=== PATIENT | male | born 1980 | race Caucasian/White ===

== ENCOUNTER 2016-09-16 20:28 | Emergency (ER) | payer MEDICAID ==
[2016-09-16] MEDS ORDERED: TETRACAINE HCL 150 DROP BTL ONE (20:44)
[2016-09-16] MEDS ORDERED: GENTAMICIN SULFATE 3.5 APPL TUBE EACHEYE ONE (21:09)
[2016-09-16] MEDS ORDERED: IBUPROFEN 600 MG TABLET PO ONE (21:10)
[2016-09-16] MEDS ORDERED: HYDROcodone/ACETAMINOPHEN 1 EACH TABLET PO ONE (21:10)
[2016-09-16] MEDS ORDERED: HYDROcodone/ACETAMINOPHEN 1 EACH TABLET ONE ×2 (21:15→21:45)
[2016-09-16] MEDS ORDERED: IBUPROFEN 600 MG TABLET ONE (21:15)
[2016-09-16] MEDS ORDERED: GENTAMICIN SULFATE 3.5 APPL TUBE ONE (21:16)
--- NOTE | 2016-09-16 21:19 | ERNOTE ---
ENT HPI Date of Service: 09/16/16 Presenting Symptoms: eye pain Time Seen by Provider: 09/16/16 20:43 Source: patient, RN notes reviewed Exam Limitations: no limitations - Immun/Allergies/Home Medications Immunizations: IMMUNIZATION HX Immunizations Up to Date No History of Influenza Vaccine Yes Hx Pneumococcal Vaccination No Allergies/Adverse Reactions: Allergies Allergy/AdvReac Type Severity Reaction Status Date / Time No Known Allergies Allergy Verified 05/11/16 09:40 Home Medications: HOME MEDICATIONS Ibuprofen [Motrin] 800 mg PO TID PRN #60 tab 05/11/16 [Last Taken Unknown] Sulfamethoxazole/Trimethoprim [Bactrim Ds] 1 tab PO BID #20 tab 05/11/16 [Last Taken Unknown] ALPRAZolam [Xanax] 1 mg PO DAILY 09/16/16 [Last Taken Unknown] Albuterol Sulfate [Proventil Hfa] 6.7 gm IH QID PRN 09/16/16 [Last Taken Unknown ] HYDROcodone/ACETAMINOPHEN [[place] 5-325] 1 - 2 tab PO Q6H PRN #12 tab 09/16/16 [ Last Taken Unknown] Ibuprofen [Motrin] 600 mg PO Q6H PRN #40 tab 09/16/16 [Last Taken Unknown] - History of Present Illness Narrative: 36 y/o male ambulatory to the ED for bilateral eye pain that began 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 He believes that there are several pieces of debris in both eyes because pieces of dirt and rust fell out of his helmet when he lifted the mask. He was also exposed to the arc from the oxyacetylene welder at that time. ENT Location: Present: eye (R), eye (L) Prearrival Treatment: Present: no prearrival treatment Prior Treament: Reports: similar symptoms before Review of Systems - Review of Systems Constitutional: Absent: recent illness, fever EYE: Present: eye pain, blurred vision, tearing. Absent: eye discharge ENT: Absent: ear pain, nose congestion, sore throat Respiratory: Present: no symptoms reported Cardiology: Present: no symptoms reported Gastrointestinal/Abdominal: Present: no symptoms reported Genitourinary: Present: no symptoms reported Musculoskeletal: Present: no symptoms reported Skin: Present: change in color. Absent: rash, lesions Neurological: Present: no symptoms reported Endocrine: Present: no symptoms reported Hematologic/Lymphatic: Present: no symptoms reported Psych: Present: no symptoms reported - Patient's Past Medical History Patient History - Medical: Anxiety Patient History - Cardiac/Respiratory: Asthma, Bronchitis Patient History - Cancer: No Hx of Cancer Patient History - Surgical Procedures: Other Patient History - Other: None - Family History Father Family History - Medical: No pertinent hx - Social History Living Situations: home Abuse History: No History of abuse Psych History: Hx of Anxiety Smoking Status: Current every day smoker Patient requests Smoking Cessation Consult: No Initiate information on Smoking Cessation: No Alcohol Use: none Drug Use: marijuana, meth - Immunizations Immunizations Up to Date: No Hx Pneumococcal Vaccination: No History of Influenza Vaccine: Yes Physical Exam - Physical Exam General Appearance: Present: wd/wn, alert, mild distress Eye Exam: PERRL: bilateral, EOMI: bilateral, Sclera injection: bilateral - mild , Eyelid inflammation: bilateral, Conjunctivae pale: bilateral Ears, Nose, Throat: Present: hearing grossly normal Respiratory: Present: no respiratory distress, no accessory muscle use Neurological Exam: Present: alert, oriented, normal mood/affect Skin Exam: Present: warm/dry, other - erythema to face ED Progress - Vital Signs Patient's Vital Signs:: I have reviewed the patient's vital signs. Vital Signs: Vital Signs 09/16/16 20:30 Temperature 36.3 C L Pulse Rate 95 Respiratory 16 Rate Blood Pressure 128/84 O2 Sat by Pulse 99 Oximetry - Progress/Reassessment Chief Complaint: Eye Injury/Trauma Progress:: Improved Procedures Eye Location: both eyes Tetracaine Drops Administered: Yes Eye - Cornea: Right: nml inspection, Left: fluorescein dye uptake, abrasion, Bilateral: examined w/fluorescein Eye FB Removal: other - no foreign body noted in either eye Antibiotic Ointment/Drps Admin: both eyes Complications: Pt chela procedure well Departure Clinical Impression: Ultraviolet keratitis of both eyes Corneal abrasion, right Qualifiers: Encounter type: initial encounter Qualified Code(s): S05.01XA - Injury of conjunctiva and corneal abrasion without foreign body, right eye, initial encounter - Departure Disposition: Home Follow Up Needed Condition: Good Instructions: Corneal Abrasion, [id number] Additional Instructions: Use eye ointment 3 times a day in each eye for 5 days Contact your eye doctor tomorrow for follow up Referrals: Yeny Aguiar, DIRECT SUPPORT SPECIALIST [Primary Care Provider] - Prescriptions: HYDROcodone/ACETAMINOPHEN [[place] 5-325] 1 - 2 tab PO Q6H PRN #12 tab PRN Reason: Pain Ibuprofen [Motrin] 600 mg PO Q6H PRN #40 tab PRN Reason: Pain
--- OUTSIDE RECORDS SUMMARY | 2016-09-16 21:22 | XMS REPORT | Continuity of Care Document ---
:1980 Author Organization [employer] [place] [address] Care Team Providers Name Role Phone Ophelia Reilly Primary Care Provider [phone] Source Comments This disclosure is being made pursuant to the [employer] program and maynot contain all information available regarding this patient.[employer] Active Allergies and Adverse Reactions No Known Allergies Current Medications Be aware that medications may not be up to date as of this document. Alwaysverify current medications with the patient. Prescription Sig. Disp. Refills Start Date End Date Status chlorhexidine (PERIDEX) Use as directed 15 120 mL 0 05/01/2014 Active 0.12 % solution mLs in the mouth or throat every 12 (twelve) hours. hydrocodone-acetaminophe Take 10 mLs by 240 mL 0 05/01/2014 Active n (HYCET) 7.5-325 mouth every 4 MG/15ML solution (four) hours as needed. Active Problems Problem Noted Date Mandible open fracture (HCC) 04/30/2014 Closed fracture of zygomatic arch (HCC) 04/30/2014 Social History Tobacco Use Types Packs/Day Years Used Date Current Every Day Smoker 0.75 Alcohol Use Drinks/Week oz/Week Comments Yes 12 Cans of beer 7.2 Last Filed Vital Signs Vital Sign Reading Time Taken Blood Pressure 150/80 05/01/2014 7:34 AM CDT Pulse 101 05/01/2014 7:34 AM CDT Temperature 36.4 C (97.6 F) 05/01/2014 7:34 AM CDT Respiratory Rate 18 05/01/2014 7:34 AM CDT Height 1.803 m (5' 11") 04/30/2014 5:47 AM CDT Weight 81.647 kg (180 lb) 04/30/2014 5:47 AM CDT Body Mass Index 25.12 04/30/2014 5:47 AM CDT Oxygen Saturation 97% 05/01/2014 7:34 AM CDT Plan of Care Health Maintenance Due Date Last Done Comments Tetanus/Pertussis (1 - Tdap) 1999 Retired-INFLUENZA VACCINE 03/22/2016 Results from Last 3 Months Not on file
[2016-09-16 21:41] VITALS: BP 128/78
== END 2016-09-16 21:45 | disposition home or self-care (01) ==
LOC: ER 20:28
DX: H16.8 Other keratitis (principal); S05.01XA Injury of conjunctiva and corneal abrasion without foreign body, right eye, initial encounter; F17.210 Nicotine dependence, cigarettes, uncomplicated; F41.9 Anxiety disorder, unspecified

== ENCOUNTER 2016-11-06 20:43 | Emergency (ER) | payer MEDICAID ==
[2016-11-06 21:14] VITALS: BP 163/102
--- OUTSIDE RECORDS SUMMARY | 2016-11-06 21:21 | XMS REPORT | Continuity of Care Document ---
:1980 Author Organization [employer] [place] [address] Care Team Providers Name Role Phone Ophelia Reilly Primary Care Provider [phone] Source Comments This disclosure is being made pursuant to the [employer] program and maynot contain all information available regarding this patient.[employer] Active Allergies and Adverse Reactions No Known Allergies Current Medications Be aware that medications may not be up to date as of this document. Alwaysverify current medications with the patient. Prescription Sig. Disp. Refills Start Date End Date Status docusate sodium Take 1 capsule 14 capsule 0 10/24/2016 Active (COLACE) 100 MG by mouth capsule daily. polyethylene glycol Take 17 g by 255 g 0 10/24/2016 Active (MIRALAX) powder mouth daily. chlorhexidine Use as 120 mL 0 05/01/2014 Discontinued (PERIDEX) 0.12 % directed 15 7 solution mLs in the mouth or throat every 12 (twelve) hours. hydrocodone-acetami Take 10 mLs by 240 mL 0 05/01/2014 Discontinued nophen (HYCET) mouth every 4 7 7.5-325 MG/15ML (four) hours solution as needed. Active Problems Problem Noted Date Mandible open fracture (HCC) 04/30/2014 Closed fracture of zygomatic arch (HCC) 04/30/2014 Most Recent Encounters Date Type Specialty Providers Description 10/24/2016 Office Visit Family Medicine Cb Medina, [employer] abdominal pain (Primary Dx) Social History Tobacco Use Types Packs/Day Years Used Date Current Every Day Smoker 0.75 Smokeless Tobacco: Never Used Tobacco Cessation:Ready to Quit: No; Counseling Given: Yes Comments: Alcohol Use Drinks/Week oz/Week Comments Yes 12 Cans of beer 7.2 Last Filed Vital Signs Vital Sign Reading Time Taken Blood Pressure 130/86 10/24/2016 3:03 PM CDT Pulse 110 10/24/2016 3:03 PM CDT Temperature 36.4 C (97.6 F) 05/01/2014 7:34 AM CDT Respiratory Rate 18 05/01/2014 7:34 AM CDT Height 1.803 m (5' 11") 04/30/2014 5:47 AM CDT Weight 81.647 kg (180 lb) 04/30/2014 5:47 AM CDT Body Mass Index 25.12 04/30/2014 5:47 AM CDT Oxygen Saturation 97% 10/24/2016 3:03 PM CDT Plan of Care Health Maintenance Due Date Last Done Comments Pneumococcal Medium Risk 19-64 yo (1 of 1 - PPSV23) 1999 Tetanus/Pertussis (1 - Tdap) 1999 Influenza Immunization (#1) 2016 Results from Last 3 Months POCT UA (10/24/2016) Component Value Range Color, UA yellow colorless, yellow Clarity or appearance, UA clear clear Glucose, UA negative negative mg/dL Bilirubin, UA negative negative, trace Ketones, UA negative negative, trace Specific [place],UA POC 1.015 1.003-1.029 Blood, UA negative negative pH, UA POC 6.0 5.0-8.5 Protein, UA POC negative negative Urobilinogen, UA POC 0.2 0.20-1.00 mg/dL Nitrite POC Negative Negative, Indeterminate Leukocytes, UA negative negative, trace
[2016-11-06] MEDS ORDERED: DIPHTH,PERTUSS(ACELL),TET VAC 0.5 ML VIAL IM ONE ×2 (21:24→21:29)
--- NOTE | 2016-11-06 21:38 | ERNOTE ---
Medical Problem HPI - Narrative Date of Service: 11/06/16 - General Chief Complaint: Rash Time Seen by Provider: 11/06/16 21:09 Source: patient - Immun/Allergies/Home Medications Immunizations: IMMUNIZATION HX Immunizations Up to Date No History of Influenza Vaccine Yes Hx Pneumococcal Vaccination No Allergies/Adverse Reactions: Allergies No Known Allergies Allergy (Verified 05/11/16 09:40) Home Medications: HOME MEDICATIONS Ibuprofen [Motrin] 800 mg PO TID PRN #60 tab 05/11/16 [Last Taken Unknown] Sulfamethoxazole/Trimethoprim [Bactrim Ds] 1 tab PO BID #20 tab 05/11/16 [Last Taken Unknown] ALPRAZolam [Xanax] 1 mg PO DAILY 09/16/16 [Last Taken Unknown] Albuterol Sulfate [Proventil Hfa] 6.7 gm IH QID PRN 09/16/16 [Last Taken Unknown ] HYDROcodone/ACETAMINOPHEN [[place] 5-325] 1 - 2 tab PO Q6H PRN #12 tab 09/16/16 [ Last Taken Unknown] Ibuprofen [Motrin] 600 mg PO Q6H PRN #40 tab 09/16/16 [Last Taken Unknown] - History of Present History Narrative: 36 year old that noticed the onset of a rash over the last couple of hours. The rash is mild, does not itch and appeared at the hands and forearm. He contacted his provider Yeny who thought that he may have been septic so she directed him to the ED. [facility] exited skilled nursing two days ago (after spending four weeks there) and used methamphetamine yesterday. Prior to going to skilled nursing he was diagnosed with MRSA rash, and had the suspicion that the new rash was due to MRSA. Complaints of fatigue for 3-4 weeks which he says is unusual for him. Denies any pain, shortness of breath, hematechezia, hematemesis, nausea or fevers. The patient reports that he had four different HIV tests prior to going to skilled nursing and all were negative. He has not treid any OTC medications. There has been a rash at the forehead that has been present for four weeks. Timing: getting worse Severity: mild Modifying Factors - (Improves): Present: other - nothing Modifying Factors - (Worsens): Present: other - nothing Review of Systems - Review of Systems Constitutional: Present: fatigue - 3-4 months EYE: Present: no symptoms reported ENT: Present: no symptoms reported Respiratory: Present: no symptoms reported Cardiology: Present: no symptoms reported Gastrointestinal/Abdominal: Present: no symptoms reported Genitourinary: Present: no symptoms reported Musculoskeletal: Present: no symptoms reported Skin: Present: no symptoms reported Neurological: Present: no symptoms reported Endocrine: Present: no symptoms reported Hematologic/Lymphatic: Present: no symptoms reported Psych: Present: no symptoms reported - Patient's Past Medical History Patient History - Medical: Anxiety Patient History - Cardiac/Respiratory: Asthma, Bronchitis Patient History - Cancer: No Hx of Cancer Patient History - Surgical Procedures: Other Patient History - Other: None - Family History Father Family History - Medical: No pertinent hx - Social History Living Situations: home Abuse History: No History of abuse Psych History: Hx of Anxiety Alcohol Use: none Drug Use: marijuana, meth - Immunizations Immunizations Up to Date: No Hx Pneumococcal Vaccination: No History of Influenza Vaccine: Yes Physical Exam - Physical Exam General Appearance: Present: alert, no apparent distress Eye Exam: Normal inspection: bilateral, PERRL: bilateral Ears, Nose, Throat: Present: normal ENT inspection Neck: Present: normal inspection Respiratory: Present: no respiratory distress, normal breath sounds Cardiovascular/Chest: Present: regular rate, rhythm Gastrointestinal/Abdominal: Present: nondistended Back Exam: Present: normal inspection Extremity Exam: Present: normal inspection Neurological Exam: Present: alert, oriented, normal mood/affect Skin Exam: Present: normal color, other - multiple healed ulcerations. There was a questionable macular rash on the forearms. Multiple scabed lesions at the forehead. ED Progress - Vital Signs Patient's Vital Signs:: I have reviewed the patient's vital signs. - Progress/Reassessment Progress Note-Subjective: 11/06/16 21:38 Givne Addicel. Departure - Departure Clinical Impression: Rash Disposition: Home self-care Condition: Good Instructions: Rash, [id number] Print Language: Greenlandic Additional Instructions: Follow up with your provider this week or next week. If you feel sick return to the ED. For the rash you can try over the counter treatments. Referrals: Yeny Aguiar, RUBBER THREAD SPOOLER [Primary Care Provider] -
== END 2016-11-06 21:39 | disposition home or self-care (01) ==
LOC: ER 20:43
DX: R21 Rash and other nonspecific skin eruption (principal); Z23 Encounter for immunization